=== PATIENT | female | born 2000 | race Caucasian/White ===

== ENCOUNTER 2019-03-13 10:31 | Emergency (ER) | payer OTHER ==
[~2019-03-13] VITALS: Ht 157.5 cm; Wt 87.5 kg
== END 2019-03-13 11:49 | disposition home or self-care (01) ==
LOC: ED 10:31
DX: G44.209 Tension-type headache, unspecified, not intractable (principal); M79.642 Pain in left hand; M79.641 Pain in right hand; F41.9 Anxiety disorder, unspecified; F32.9 Major depressive disorder, single episode, unspecified